=== PATIENT | male | born 1945 | race African-American/Black ===

== ENCOUNTER → 2016-02-23 | Outpatient (CLI) | payer OTHER, BC ==
[2016-02-09 15:00] VITALS: BP 140/65
[~2016-02-23] MED LIST: ASPI-252 PO; ATOR20TA PO; BUDE0.5A NEB; DILT240C32 PO; INSU100I17 SQ; INSU100I27 SQ; IPRA0.2S5 NEB; LEVO500T38 PO; LISI10TA2 PO; METF500T4 PO
--- NOTE | 2016-02-23 14:33 | RAD ---
EXAM: Chest, 2 views. HISTORY: Chest pain. COMPARISON: 02/09/2016. FINDINGS: Frontal and lateral views of the chest are obtained. There is a small right pleural effusion with basilar atelectasis or pleural parenchymal scarring. There is also trace fluid tracking within the right major fissure. The heart is normal in size. There is no pneumothorax. IMPRESSION: Small right pleural effusion with lower lobe atelectasis or pleural-parenchymal scarring.
== END | disposition home or self-care (01) ==
LOC: RAD 13:32
PROVIDERS: ATTEND Thoracic Surgery (Cardiothoracic Vascular Surgery)
DX: J90 Pleural effusion, not elsewhere classified (principal); J98.11 Atelectasis; Z98.890 Other specified postprocedural states
CPT/HCPCS: 71020